=== PATIENT | female | born 1950 | race Caucasian/White ===

== ENCOUNTER → 2025-02-07 | Emergency (ER) | payer MEDICARE, OTHER ==
[~2025-02-07] VITALS: Ht 152.4 cm; Wt 74.8 kg
[~2025-02-07] MED LIST: AMOX-430 PO; AMOX/CLAVULANATE 875 MG TABLET ONE; CETI10CA8 PO; IOHEXOL-350 100 ML VIAL IV ONE; IV NS 0.9% 250 ML IV ONE; cetrizine 10 MG TABLET ONE
[2025-02-07 19:01] VITALS: TEMP 98.2
[2025-02-07 19:40] LABS: PLATELET COUNT (AUTO) 288 K/uL (150-450); RED BLOOD CELL COUNT(AUTO) 4.58 MIL/uL (4.0-5.2); RED CELL DISTRIBUTION WIDTH 14.7 % (11.5-15.0); WHITE BLOOD COUNT (AUTO) 9.6 K/uL (4.3-11.0)
[2025-02-07] MEDS: IV NS 0.9% 1,000 ML BAG IV ONE (19:40)
[2025-02-07 19:47] LABS: CALCIUM, SERUM 8.9 mg/dL (8.5-10.1); CREATININE 0.8 mg/dL (0.6-1.3); SODIUM SERUM 135 mmol/L (136-145); UREA NITROGEN, BLOOD 22 mg/dL (7-18)
[2025-02-07 19:53] LABS: ASPARTATE AMINOTRANSFERASE 23 U/L (15-37); TOTAL PROTEIN, SERUM 7.6 g/dL (6.4-8.2)
[2025-02-07 21:30] VITALS: BP 140/67; O2SAT 98
[2025-02-07] MEDS: cetrizine 10 MG TABLET PO ONE (22:03)
[2025-02-07] MEDS: KETOROLAC TROMETHAMINE 15 MG/ML VIAL IV ONE (22:03)
[2025-02-07] MEDS: AMOX/CLAVULANATE 875 MG TABLET PO ONE (22:03)
== END | disposition home or self-care (01) ==
LOC: ER 18:32
DX: H66.91 Otitis media, unspecified, right ear (principal); R51.9 Headache, unspecified; R42 Dizziness and giddiness; I10 Essential (primary) hypertension; E78.00 Pure hypercholesterolemia, unspecified
CPT/HCPCS: 99285; 70498; 96374; 96361; 93005; 70496; 85025; 36415; 80053; J1885; J7050; Q9967